=== PATIENT | female | born 1990 | race Two or more races ===

== ENCOUNTER 2024-07-05 20:16 | Inpatient (IN) | payer OTHER ==
[~2024-07-05] VITALS: Ht 160 cm; Wt 49.9 kg
--- NOTE | 2024-07-05 20:21 | NUR ---
SE RECIBE PTE ALERTA Y ORIENTADA X3. REFIERE DOLOR DE JONO Y MALESTAR ESTOMACAL DESDE EL SABADO
[2024-07-05] MEDS ORDERED: ONDANSETRON HCL 2 MG/ML VIAL IM STA (22:28)
[2024-07-05] MEDS ORDERED: 0.9 % SODIUM CHLORIDE 500 ML IV STA (22:28)
[2024-07-05] MEDS ORDERED: FAMOTIDINE/PF 20 MG/2 ML VIAL IV PUSH STA (22:28)
--- NOTE | 2024-07-05 23:27 | NUR ---
SE RECIBE PTE ALERTA ORIENTADA X3.SE NARINDER MUESTRAS DE LABORATORIO USANDO MEDIDAS ASEPTICAS.SE ADMINISTRAN MEDICAMENTOS PHILLY ORDEN MEDICA.SE ORIENTA PTE SOBRE OBJETIVO DE [place] MEDICO.PTE MANEJADO POR DIANE DAWN.
[2024-07-06 00:26] LABS: ALBUMIN 3.7 gm/dL (3.4-5.0); BILIRUBIN TOTAL 0.2 mg/dL (0.3-1.2); CALCIUM 8.8 mg/dL (8.5-10.1); CREATININE SERUM 0.63 mg/dL (0.55-1.02); GFR 107.54; GLOBULINA 3.7 G/DL (2.4-3.5); POTASSIUM 3.82 mEq/L (3.5-5.1); TOTAL PROTEIN 7.4 gm/dL (6.4-8.2)
[2024-07-06 00:34] LABS: PH,URINE 5.5 (5.0-8.0); URINE APPEARANCE Clear; URINE BILIRRUBIN Negative (NEGATIVE); URINE BLOOD Small; URINE COLOR Yellow; URINE GLUCOSE Negative (NEGATIVE); URINE KETONE 15 (NEGATIVE); URINE LEUKOCYTE Negative; URINE NITRATE Negative; URINE PROTEIN 30 (NEGATIVE); URINE UROBILINOGEN 0.2 E.U./dl
[2024-07-06 00:37] LABS: URINE BACTERIA 70.5 uL (0.0-1933); URINE EPITHELIAL CELLS 37.3 uL (0.0-38.8); URINE RBC 116.4 uL (0.0-20.8); URINE WBC 6.9 uL (0.0-23.2)
[2024-07-06 01:09] LABS: HEMATOCRIT 32.2 % (36.0-45.00); HEMOGLOBIN 10.8 g/dL (12.0-15.00); MEAN CELL VOLUME 92.2 fL (80.00-100.00); RED BLOOD COUNT 3.49 M/uL (4.00-6.00); RED CELL DISTRIBUTION WIDTH 13.7 % (11.5-14.5)
[2024-07-06 01:10] LABS: MEAN CORPUSCULAR HGB CONC 33.6 g/dl (32.0-36.0)
[2024-07-06 01:11] LABS: PLATELET COUNT 75 K/uL (150-450)
[2024-07-06 01:16] LABS: URINE CAST 0.45 uL (0.0-1.40)
[2024-07-06] MEDS ORDERED: PIPERACILLIN/TAZOBACTAM SODIUM 3.375 GM in DEXTROSE 5 % IN WATER 100 ML IV SCH (02:21)
[2024-07-06] MEDS ORDERED: MEPERIDINE HCL 25 MG/ML AMPUL IV STA (02:21)
[2024-07-06] MEDS ORDERED: PROMETHAZINE HCL 50 MG/ML AMPUL IM STA (02:51)
[2024-07-06 06:48] LABS: HEMATOCRIT 26.3 % (36.0-45.00); MEAN CELL VOLUME 92.3 fL (80.00-100.00); MEAN CORPUSCULAR HEMOGLOBIN 31.5 pg (27.00-32.0); MEAN CORPUSCULAR HGB CONC 34.2 g/dl (32.0-36.0); RED BLOOD COUNT 2.85 M/uL (4.00-6.00); RED CELL DISTRIBUTION WIDTH 13.9 % (11.5-14.5)
[2024-07-06 07:27] LABS: PLATELET COUNT 54 K/uL (150-450)
--- NOTE | 2024-07-06 07:33 | NUR ---
SE RECIBE PACIENTE ALERTA Y ORIENTADA X3 LA CUAL AL MOMENTO SE ENCUENTRA EN CAMA EN POSICION SEMI SENTADA CON BARANDAS ELEVADAS. SE OBSERVA CANALIZADA CON IVF DE 0.9NSS. SE MANTIENE BAJO OBSERVACION PARA CONTINUACION DE TRATAMIENTO.
[2024-07-06 10:16] LABS: HEMATOCRIT 31.6 % (36.0-45.00); HEMOGLOBIN 10.5 g/dL (12.0-15.00); MEAN CELL VOLUME 93.2 fL (80.00-100.00); MEAN CORPUSCULAR HEMOGLOBIN 31.1 pg (27.00-32.0); MEAN CORPUSCULAR HGB CONC 33.3 g/dl (32.0-36.0); RED BLOOD COUNT 3.39 M/uL (4.00-6.00); RED CELL DISTRIBUTION WIDTH 14.1 % (11.5-14.5)
[2024-07-06 10:22] LABS: PLATELET COUNT 56 K/uL (150-450)
[2024-07-06] MEDS ORDERED: FAMOTIDINE/PF 20 MG in 0.9 % SODIUM CHLORIDE 100 ML IV SCH (12:13)
[2024-07-06] MEDS ORDERED: ACETAMINOPHEN 325 MG TABLET PO PRN (12:15)
[2024-07-06] MEDS ORDERED: RINGERS SOLUTION,LACTATED 1,000 ML IV SCH (12:30)
[2024-07-06] MEDS ORDERED: KETOROLAC TROMETHAMINE 30 MG VIAL IM PRN (12:30)
[2024-07-06] MEDS ORDERED: ACETAMINOPHEN 500 MG GEL..CAP PO PRN (13:00)
[2024-07-06] MEDS ORDERED: ONDANSETRON HCL 4 MG in DEXTROSE 5 % IN WATER 50 ML IV SCH (13:00)
[2024-07-06 14:59] LABS: ALBUMIN 3.5 gm/dL (3.4-5.0); ALKALINE PHOSPHATASE 62 U/L (50-136); ALT/SGPT 47 U/L (12-78); AST/SGOT 31 U/L (15-37); BILIRUBIN TOTAL 0.38 mg/dL (0.3-1.2); BILIRUBIN,CONJUGATED < 0.10 mg/dL (0.0-0.2); BILIRUBIN,UNCONJUGATED 0.28 mg/dL (0.0-0.6); TOTAL PROTEIN 7.2 gm/dL (6.4-8.2)
[2024-07-06 16:07] LABS: INR 1.1; PROTHROMBIN TIME 11.9 SECONDS (9.0-11.5)
[2024-07-06] MEDS ORDERED: METRONIDAZOLE/SODIUM CHLORIDE 100 ML IV SCH (17:00)
[2024-07-06 18:31] VITALS: BP 102/68
[2024-07-07 03:09] VITALS: BP 92/55; O2SAT 96
[2024-07-07 08:49] VITALS: BP 96/57
[2024-07-07] MEDS ORDERED: CEFTRIAXONE SODIUM 2,000 MG in 0.9 % SODIUM CHLORIDE 100 ML IV SCH (09:00)
[2024-07-07] MEDS ORDERED: MORPHINE SULFATE 2 MG/ML CARTRIDGE IV PRN (11:45)
[2024-07-07 13:20] LABS: HEMATOCRIT 27.6 % (36.0-45.00); HEMOGLOBIN 9.1 g/dL (12.0-15.00); MEAN CELL VOLUME 93.4 fL (80.00-100.00); MEAN CORPUSCULAR HGB CONC 33.2 g/dl (32.0-36.0); RED BLOOD COUNT 2.95 M/uL (4.00-6.00); RED CELL DISTRIBUTION WIDTH 13.7 % (11.5-14.5)
[2024-07-07 13:29] LABS: PLATELET COUNT 38 K/uL (150-450)
[2024-07-07 17:30] VITALS: BP 94/61; O2SAT 99
[2024-07-07 19:55] VITALS: BP 108/67; O2SAT 100
[2024-07-07] MEDS ORDERED: DEXTROSE 5 % IN WATER 1,000 ML IV SCH (20:30)
[2024-07-08 01:08] VITALS: BP 100/66; O2SAT 96
[2024-07-08 06:43] LABS: HEMATOCRIT 26.6 % (36.0-45.00); HEMOGLOBIN 9.1 g/dL (12.0-15.00); MEAN CELL VOLUME 92.2 fL (80.00-100.00); MEAN CORPUSCULAR HEMOGLOBIN 31.6 pg (27.00-32.0); MEAN CORPUSCULAR HGB CONC 34.3 g/dl (32.0-36.0); RED BLOOD COUNT 2.89 M/uL (4.00-6.00); RED CELL DISTRIBUTION WIDTH 13.7 % (11.5-14.5)
[2024-07-08 06:53] LABS: PLT IN CITRATE 17 K/uL (150-450)
[2024-07-08 06:59] LABS: PLATELET COUNT 33 K/uL (150-450)
[2024-07-08] MEDS ORDERED: PANTOPRAZOLE SODIUM 40 MG in 0.9 % SODIUM CHLORIDE 8 ML IV PUSH SCH (09:00)
[2024-07-08 09:10] VITALS: BP 105/61; O2SAT 100
[2024-07-08 18:12] VITALS: BP 98/54
[2024-07-08 19:38] LABS: CALCIUM 7.8 mg/dL (8.5-10.1); CREATININE SERUM 0.6 mg/dL (0.55-1.02); GFR 113.76; POTASSIUM 3.39 mEq/L (3.5-5.1)
[2024-07-09 02:29] VITALS: BP 96/59; O2SAT 100
[2024-07-09 05:53] LABS: HEMATOCRIT 26.7 % (36.0-45.00); MEAN CELL VOLUME 90.9 fL (80.00-100.00); MEAN CORPUSCULAR HEMOGLOBIN 30.6 pg (27.00-32.0); MEAN CORPUSCULAR HGB CONC 33.6 g/dl (32.0-36.0); RED BLOOD COUNT 2.94 M/uL (4.00-6.00); RED CELL DISTRIBUTION WIDTH 13.6 % (11.5-14.5)
[2024-07-09 06:30] LABS: ALBUMIN 2.6 gm/dL (3.4-5.0); BILIRUBIN TOTAL 0.25 mg/dL (0.3-1.2); CALCIUM 7.7 mg/dL (8.5-10.1); CREATININE SERUM 0.42 mg/dL (0.55-1.02); GFR 171.69; GLOBULINA 2.8 G/DL (2.4-3.5); POTASSIUM 3.61 mEq/L (3.5-5.1); TOTAL PROTEIN 5.4 gm/dL (6.4-8.2)
[2024-07-09 06:39] LABS: PLATELET COUNT 36 K/uL (150-450)
[2024-07-09 06:48] LABS: C-REACTIVE PROTEIN 2.06 MG/DL (0.00-0.29); FERRITIN 590.8 NG/ML (8-252)
[2024-07-09 09:13] VITALS: BP 100/63
[2024-07-09] MEDS ORDERED: 0.9 % SODIUM CHLORIDE 1,000 ML IV SCH (10:30)
[2024-07-09 11:09] LABS: ERYTHROCYTE SEDIMENTATION RATE 1 mm/hr
[2024-07-09 16:50] VITALS: BP 105/61
[2024-07-09] MEDS ORDERED: PANTOPRAZOLE SODIUM 40 MG in 0.9 % SODIUM CHLORIDE 8 ML IV PUSH STA (21:11)
[2024-07-09] MEDS ORDERED: METOCLOPRAMIDE HCL 5 MG/ML VIAL IV SCH (21:15)
[2024-07-10 02:25] VITALS: BP 91/55; O2SAT 100
[2024-07-10 08:11] LABS: HEMATOCRIT 26.9 % (36.0-45.00); HEMOGLOBIN 9.1 g/dL (12.0-15.00); MEAN CORPUSCULAR HEMOGLOBIN 31.3 pg (27.00-32.0); RED BLOOD COUNT 2.92 M/uL (4.00-6.00); RED CELL DISTRIBUTION WIDTH 13.8 % (11.5-14.5)
[2024-07-10 08:19] VITALS: BP 99/64; O2SAT 94
[2024-07-10 08:52] LABS: PLATELET COUNT 60 K/uL (150-450)
[2024-07-10] MEDS ORDERED: PANTOPRAZOLE SODIUM 40 MG in 0.9 % SODIUM CHLORIDE 8 ML IV PUSH SCH (09:00)
[2024-07-10 16:00] VITALS: BP 106/69; O2SAT 97
[2024-07-10] MEDS ORDERED: LACTOBACILLUS ACIDOPHILUS 1 CAP CAP PO SCH (17:00)
[2024-07-11 06:37] LABS: HEMATOCRIT 25.8 % (36.0-45.00); MEAN CELL VOLUME 90.5 fL (80.00-100.00); MEAN CORPUSCULAR HEMOGLOBIN 31.5 pg (27.00-32.0); MEAN CORPUSCULAR HGB CONC 34.9 g/dl (32.0-36.0); RED BLOOD COUNT 2.86 M/uL (4.00-6.00); RED CELL DISTRIBUTION WIDTH 13.6 % (11.5-14.5)
[2024-07-11 07:35] LABS: ALBUMIN 2.5 gm/dL (3.4-5.0); BILIRUBIN TOTAL 0.24 mg/dL (0.3-1.2); CALCIUM 7.7 mg/dL (8.5-10.1); CREATININE SERUM 0.43 mg/dL (0.55-1.02); GFR 167.1; GLOBULINA 3.1 G/DL (2.4-3.5); POTASSIUM 3.4 mEq/L (3.5-5.1); TOTAL PROTEIN 5.6 gm/dL (6.4-8.2)
[2024-07-11 07:39] LABS: PLATELET COUNT 105 K/uL (150-450)
[2024-07-11 09:31] VITALS: BP 106/68; O2SAT 98
[2024-07-11 10:02] LABS: PLATELET ESTIMATE DECREASED (NORMAL)
[2024-07-11 16:00] VITALS: BP 116/73; O2SAT 97
[2024-07-11] MEDS ORDERED: SOD FERRIC GLUC COMPLX/SUCROSE 125 MG in 0.9 % SODIUM CHLORIDE 100 ML IV SCH (18:45)
[2024-07-11] MEDS ORDERED: POTASSIUM CHLORIDE 10 MEQ CAPSULE PO ONE (19:15)
[2024-07-12 00:17] VITALS: BP 99/60; O2SAT 96
[2024-07-12 05:43] LABS: ALBUMIN 2.5 gm/dL (3.4-5.0); BILIRUBIN TOTAL 0.21 mg/dL (0.3-1.2); CALCIUM 7.9 mg/dL (8.5-10.1); CREATININE SERUM 0.44 mg/dL (0.55-1.02); GFR 162.72; GLOBULINA 2.8 G/DL (2.4-3.5); MAGNESIUM 1.8 mg/dL (1.8-2.4); PHOSPHOROUS 2.3 mg/dL (2.5-4.9); POTASSIUM 3.68 mEq/L (3.5-5.1); TOTAL PROTEIN 5.3 gm/dL (6.4-8.2)
[2024-07-12 05:51] LABS: HEMATOCRIT 26.4 % (36.0-45.00); HEMOGLOBIN 9.1 g/dL (12.0-15.00); MEAN CORPUSCULAR HEMOGLOBIN 31.4 pg (27.00-32.0); MEAN CORPUSCULAR HGB CONC 34.5 g/dl (32.0-36.0); RED CELL DISTRIBUTION WIDTH 13.5 % (11.5-14.5)
[2024-07-12 08:17] LABS: PLATELET COUNT 164 K/uL (150-450)
[2024-07-12 08:48] VITALS: BP 115/76; O2SAT 99
[2024-07-12] MEDS ORDERED: NAPH,MB-DB/K PH,MBDB 1 PKT PACKET PO STA (16:16)
[2024-07-12 16:22] VITALS: BP 104/68; O2SAT 99
[2024-07-12] MEDS ORDERED: AMOX-CLAV 875-1 EAC1 PO (17:48)
[2024-07-12] MEDS ORDERED: INTEGRA PLUS C1 EACH PO (17:50)
[2024-07-13 15:10] LABS: ANTI-CENTROMERE AB <0.2 AI (0.0-0.9); DNA AB DOUBLE STRABDED < 1 IU/mL (0-9)
== END 2024-07-12 18:00 | disposition home or self-care (01) | DRG 865 ==
LOC: ER 20:18 → MEDI 07-06 12:15 → SEC-K 07-06 12:15 → MEDJ 07-06 12:15 → MEDI 07-07 13:40
PROVIDERS: General Practice; Internal Medicine; Internal Medicine Hematology & Oncology; Student in an Organized Health Care Education/Training Program; ADMIT Internal Medicine; ATTEND Internal Medicine
DX: A90 Dengue fever [classical dengue] (principal); K65.0 Generalized (acute) peritonitis; K81.0 Acute cholecystitis; K90.49 Malabsorption due to intolerance, not elsewhere classified; D69.6 Thrombocytopenia, unspecified; D50.8 Other iron deficiency anemias